=== PATIENT | female | born 1995 ===

== ENCOUNTER → 2019-11-14 | Outpatient (CLI) | payer OTHER | END | disposition home or self-care (01) | LOC: LAB 08:45 → LAB SHORT 08:45 | DX: Z34.83 Encounter for supervision of other normal pregnancy, third trimester (principal) | CPT/HCPCS: 87081; 87653 ==

== ENCOUNTER 2022-04-01 17:14 | Emergency (ER) | payer OTHER ==
[~2022-04-01] VITALS: Ht 167.6 cm; Wt 90.3 kg
[2022-04-01] MEDS ORDERED: AMOCLA875 PO (18:02)
== END 2022-04-01 18:02 | disposition home or self-care (01) ==
LOC: ER 17:14
DX: J32.9 Chronic sinusitis, unspecified (principal)
CPT/HCPCS: 99283